=== PATIENT | male | born 1985 | race American Indian/Alaskan Native ===

== ENCOUNTER 2020-07-26 21:25 | Emergency (ER) | payer OTHER ==
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
[2020-07-26 21:37] VITALS: BP 143/87
[2020-07-26] MEDS ORDERED: HYDROcodone/ACETAMINOPHEN 5-325 MG TAB PO STA (21:48)
--- NOTE | 2020-07-26 22:20 | XRay Report ---
LUMBAR SPINE 3 VIEWS INDICATION / CLINICAL INFORMATION: back pain. COMPARISON: None available. FINDINGS: VERTEBRAE: No acute fracture. No significant malalignment. DISC SPACES / FACET JOINTS:No significant abnormality. PARASPINAL SOFT TISSUES:No significant abnormality. ADDITIONAL FINDINGS: None. Signer Name: Brian Giles MD Signed: 07/26/2020 10:15 PM Workstation Name: [id number]
--- NOTE | 2020-07-26 22:26 | XRay Report ---
CERVICAL SPINE 3 VIEWS INDICATION / CLINICAL INFORMATION: neck pain. COMPARISON: None available. FINDINGS: VERTEBRAE: No acute fracture. No significant malalignment. DISC SPACES / FACET JOINTS:Minimal anterior osteophytosis at C5-6 PARASPINAL SOFT TISSUES:No significant abnormality. ADDITIONAL FINDINGS: None. Signer Name: Brian Giles MD Signed: 07/26/2020 10:21 PM Workstation Name: [id number]
== END 2020-07-26 23:08 | disposition home or self-care (01) ==
LOC: ED 21:25
DX: M54.2 Cervicalgia (principal); M54.5 Low back pain; M79.18 Myalgia, other site; Z79.899 Other long term (current) drug therapy; V49.49XA Driver injured in collision with other motor vehicles in traffic accident, initial encounter; Y92.410 Unspecified street and highway as the place of occurrence of the external cause; Y93.89 Activity, other specified; Y99.8 Other external cause status
CPT/HCPCS: 72040; 72100; 99283